=== PATIENT | male | born 2000 | race Two or more races ===

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

== ENCOUNTER 2019-03-16 12:48 | Emergency (ER) | payer OTHER ==
[~2019-03-16] VITALS: Ht 167.6 cm; Wt 61.2 kg
[2019-03-16 13:04] VITALS: BP 126/68
== END 2019-03-16 13:20 | disposition home or self-care (01) ==
LOC: ER 12:53
DX: R23.8 Other skin changes (principal)

== ENCOUNTER 2020-12-24 13:14 | Emergency (ER) | payer OTHER ==
[~2020-12-24] VITALS: Ht 167.6 cm; Wt 68.0 kg
--- NOTE | 2020-12-24 13:26 | NUR ---
THE PATIENT BIBS FOR C/O R SIDED HEAD PAIN FOR 4 DAYS. RATES PAIN 5/10. ALERT AND ORIENTED X4. IN ROOM AIR AND DENIES SOB. RESPIRATION REGULAR AND UNLABORED. WILL CONTINUE TO MONITOR THE PATIENT.
[2020-12-24] MEDS ORDERED: TRIA10.8 NS (14:48)
[2020-12-24] MEDS ORDERED: LORA10TA7 PO (14:48)
[2020-12-24 15:05] VITALS: BP 131/80
--- NOTE | 2020-12-24 15:05 | NUR ---
The patient alert and oriented x4. Patient discharged to home in stable condition. Written and verbal after care instructions given. Patient verbalizes understanding of instruction.
== END 2020-12-24 15:06 | disposition home or self-care (01) ==
LOC: ER 13:14
DX: R51.9 Headache, unspecified (principal); J32.9 Chronic sinusitis, unspecified; Z79.899 Other long term (current) drug therapy
CPT/HCPCS: 70450-TC